=== PATIENT | male | born 1995 | race Caucasian/White ===

== ENCOUNTER 2019-08-04 19:48 | Emergency (ER) | payer MEDICARE, MEDICAID, SELFPAY ==
--- NOTE | 2019-08-04 19:51 | XR_ITS ---
WS: [id number] XR chest 2V* [id number] REASON FOR EXAM: cough FINDINGS: Gross cardiomegaly is seen. There is interstitial pulmonary edema bilaterally. The projections are underpenetrated due to the body habitus of the patient. No pneumonic consolidation. XR/XR chest 2V* [id number] IMPRESSION: Mild congestive heart failure Gross cardiomegaly.
[2019-08-04 20:24] VITALS: BP 158/88; PULSE 78; RESP 16; TEMP 37.3; O2SAT 96; BMI 120.0
--- NOTE | 2019-08-04 20:48 | W.ED.SOB ---
HPI - SOB/Dyspnea General: Chief Complaint: Shortness of Breath/Dyspnea Stated Complaint: sob Time Seen by Provider: 08/04/19 20:35 Source: patient and family Mode of arrival: wheelchair Limitations: no limitations History of Present Illness: HPI Narrative: Patient is a 23-year-old male who presents to ED today with complaints of an episode of chest pain and accompanying shortness of breath that occurred prior to arrival but has subsided upon arrival. Patient states symptoms started at rest. He describes the pain as substernal with no radiation. Reports a mild cough. Patient reports he is not short of breath sitting in the room. He has not noticed any fevers. Denies palpitations, hemoptysis, lightheadedness/dizziness, LE swelling. Patient reportedly has a history of cardiomegaly but he has never had any follow-up or work-up regarding this. Patient has a history of dwarfism causing very short round stature. MD elicited complaint: shortness of breath and chest pain Onset (ago): hour(s) Timing: now resolved Severity: mild Exacerbating factors: nothing Relieving factors: nothing Associated symptoms: Reports no associated symptoms and chest pain (subsided now); Deny abdominal pain, chest congestion, fever(s), hemoptysis, lightheadedness, nausea, orthopnea, palpitations, syncope or vomiting Treatment prior to arrival: none Review of Systems Const: Denies: fever, chills, body aches, change in appetite, change in weight or fatigue Eyes: Denies: change in vision, blurry vision or photophobia ENMT: Denies: throat pain, enlarged tonsils or painful swallowing Card: Reports: chest pain (subsided now); Denies: palpitations, irregular heart rhythm, edema, swelling of feet/ankles, lightheadedness, syncope, pre-syncope, shortness of breath when lying down or leg pain with exertion Resp: Reports: shortness of breath (subsided now) and non-productive cough; Denies: pain on inspiration, change in phlegm color, coughing up blood or chest congestion GI: Denies: abdominal pain, nausea or vomiting Musc: Denies: neck pain or back pain Skin/Breast: Denies: rash Neuro: Denies: headache, numbness in extremities, weakness in extremities or changes in sensation PFSH ED PFSH: Social History Smoking and tobacco status: current every day smoker Physical Exam Const: COMMON NORMALS: no apparent distress, oriented x3, no limitations and alert OTHER: 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 Patient's BMI is over 120. HENMT: COMMON NORMALS: normocephalic and head/scalp atraumatic HEAD & SCALP: normocephalic and atraumatic Resp: COMMON NORMALS: normal respiratory effort and clear to auscultation bilaterally AUSCULTATION: clear to auscultation bilaterally Cardio: COMMON NORMALS: regular rate and regular rhythm RATE: regular rate RHYTHM: regular rhythm Neuro: COMMON NORMALS: oriented x3 SENSORIUM/ORIENTATION: Yes alert Skin: COMMON NORMALS: no rashes or lesions noted GENERAL SKIN EXAM: no rashes or lesions noted Course Vital Signs: Vital signs: Vital Signs Temperature 99.0 F 08/04/19 22:54 Pulse Rate 82 08/04/19 22:54 Respiratory Rate 16 08/04/19 22:54 Blood Pressure 152/86 08/04/19 22:54 Pulse Oximetry 97 08/04/19 22:54 MDM - SOB/Dyspnea MDM Narrative: Medical decision making narrative: Patient comes in with complaint of one episode of shortness of breath and chest pain that have now resolved. Patient's labs including a troponin are normal. His CXR does show cardiomegaly but no other acute abnormalities. EKG is normal. Patient ultimately needs follow-up with his PCP. Given his extreme short stature and morbidly obese weight (BMI is over 120) he is at cardiac risk. Patient and family agree to follow-up with their PCP as soon as possible. Return to ED precautions given. Lab Data: Labs: Lab Results 08/04/19 08/04/19 08/04/19 Range/Units 21:15 21:15 21:26 WBC 10.4 H (4.0-10.0) 10^3/ uL RBC 5.08 (4.1-5.3) 10^6/u L Hgb 15.6 (11.7-16.6) g/dL Hct 47.6 (42.0-52.0) % MCV 93.7 (80-94) fL MCH 30.7 (28.0-34.0) pg MCHC 32.8 (30.0-36.0) g/dL RDW 12.8 (12.1-15.1) % Plt Count 330 (130-400) 10^3/c mm MPV 10.2 (7.4-10.4) fL Neut % (Auto) 67.9 % Lymph % (Auto) 20.3 % [place] % (Auto) 6.4 % Eos % (Auto) 4.3 % Baso % (Auto) 0.8 % Neut # (Auto) 7.1 (1.8-7.7) 10^3/u L Lymph # (Auto) 2.1 (0.8-4.8) 10^3/u L [place] # (Auto) 0.7 (0.2-0.9) 10^3/u L Eos # (Auto) 0.5 (0.0-0.8) 10^3/u L Baso # (Auto) 0.1 (0.0-0.1) 10^3/u L Nucleated RBC % (a uto) 0 % Nucleated RBCs # 0.0 /100WBC Sodium 138 (136-145) mmol/L Potassium 4.1 (3.5-5.1) mmol/L Chloride 101 (98-107) mmol/L Carbon Dioxide 23 (22-29) mmol/L Anion Gap 18.1 (5-19) BUN 6 (6-20) mg/dL Creatinine 0.4 L (0.7-1.2) mg/dL GFR Calculation 264.3 H (90-130) mL/min Glucose 104 (65-115) mg/dL Calculated Osmolal ity 282 L (285-295) mOsm/k g Calcium 9.9 (8.5-10.5) mg/dL Total Bilirubin 0.3 (0.15-1.2) mg/dL AST 32 (0-40) U/L ALT 55 H (0-41) U/L Alkaline Phosphata se 68 (40-130) IU/L Troponin T Gen 5 n g/L 7 (0-15) ng/mL Total Protein 7.6 (6.6-8.7) g/dL Albumin 4.5 (3.5-5.2) g/dL Globulin 3.1 (1.3-4.6) g/dL Imaging Data^: CXR: My impression: overall poor quality; cardiomegaly; no other acute abnormalities appreciated EKG Data^: EKG 1: EKG Interpretation Date: 08/04/19 EKG interpretation time: 20:40 Interpretation: Sinus rhythm Rate [address] elevation or depression noted Discharge Plan Discharge Patient Disposition: Home, Self-Care Clinical Impression: Chest pain Qualifiers: Chest pain type: unspecified Qualified Code(s): R07.9 - Chest pain, unspecified Condition: Stable Prescriptions: No Action No Known Home Medications RF: 0 Discharge Orders: Discharge Order (Routine); Ordered 08/04/19 Ordered By: Rolanda Fowler Activity Restrictions/Additional Instructions: As discussed you need to follow-up with your primary care doctor soon as possible for further evaluation. They may opt to perform outpatient testing for further evaluation of your heart. Return to the emergency department for worsening pain, worsening shortness of breath, fevers, or any other concerns you may have. Coding Level of Care Code ED Emergency Spill Response Technician for Chg Fwd Exam Detailed
[2019-08-04 21:13] VITALS: O2SAT 97
[2019-08-04 21:38] LABS: Basophils # 0.1 10^3/uL (0.0-0.1); Basophils % 0.8 %; Eosinophils # 0.5 10^3/uL (0.0-0.8); Eosinophils % 4.3 %; Hematocrit 47.6 % (42.0-52.0); Hemoglobin 15.6 g/dL (11.7-16.6); Lymphocytes # 2.1 10^3/uL (0.8-4.8); Lymphocytes % 20.3 %; Mean Corpuscular HGB Conc 32.8 g/dL (30.0-36.0); Mean Corpuscular Hemoglobin 30.7 pg (28.0-34.0); Mean Corpuscular Volume 93.7 fL (80-94); Mean Platelet Volume 10.2 fL (7.4-10.4); Monocytes # 0.7 10^3/uL (0.2-0.9); Monocytes % 6.4 %; Neutrophils # 7.1 10^3/uL (1.8-7.7); Neutrophils % 67.9 %; Nucleated Red Blood Cells % 0 %; Platelet Count 330 10^3/cmm (130-400); Red Blood Count 5.08 10^6/uL (4.1-5.3); Red Cell Distribution Width 12.8 % (12.1-15.1); White Blood Count 10.4 10^3/uL (4.0-10.0)
[2019-08-04 21:49] LABS: Alanine Aminotransferase 55 U/L (0-41); Albumin Level 4.5 g/dL (3.5-5.2); Alkaline Phosphatase 68 IU/L (40-130); Anion Gap 18.1 (5-19); Aspartate Amino Transferase 32 U/L (0-40); Blood Urea Nitrogen 6 mg/dL (6-20); Calcium 9.9 mg/dL (8.5-10.5); Carbon Dioxide 23 mmol/L (22-29); Chloride 101 mmol/L (98-107); Globulin 3.1 g/dL (1.3-4.6); Glomerular Filtration Rate 264.3 mL/min (90-130); Glucose 104 mg/dL (65-115); Osmolality Calculated 282 mOsm/kg (285-295); Potassium 4.1 mmol/L (3.5-5.1); Sodium 138 mmol/L (136-145); Total Bilirubin 0.3 mg/dL (0.15-1.2); Total Protein 7.6 g/dL (6.6-8.7)
[2019-08-04 22:27] LABS: Troponin T (5th) Once 7 ng/mL (0-15)
[2019-08-04 22:54] VITALS: BP 152/86; PULSE 82; RESP 16; TEMP 37.2; O2SAT 97
--- NOTE | 2019-08-05 00:19 | PC.NURSE ---
Assessment verified and signed off
== END 2019-08-04 23:00 | disposition home or self-care (01) ==
PROVIDERS: Emergency Provider Physician Assistant
DX: R07.9 Chest pain, unspecified (principal); E66.01 Morbid (severe) obesity due to excess calories; Z68.45 Body mass index [BMI] 70 or greater, adult; F17.200 Nicotine dependence, unspecified, uncomplicated
CPT/HCPCS: 12345; 36415; 71046; 80053; 84484; 85025; 99282; 99283

== ENCOUNTER 2023-10-12 17:22 | Emergency (ER) | payer MEDICARE, MEDICAID, SELFPAY ==
[2023-10-12 17:23] VITALS: BP 103/76; PULSE 112; RESP 20; TEMP 37.2; O2SAT 93
--- NOTE | 2023-10-12 17:31 | ECG_ITS ---
[facility] Test Date: 2023-10-12 Pat Name: Antony Bui Department: Room: Gender: Male Certified Orthotist/Pedorthist: : 1995 Requested By: Vinay Saenz Order Number: [id number] Sukumar MD: Jennifer Wilkerson M.D. Measurements Intervals [place] Rate: 114 P: 49 MS: 148 QRS: 67 QRSD: 98 T: 56 QT: 374 QTc: 517 Interpretive Statements SINUS TACHYCARDIA LOW QRS VOLTAGE IN PRECORDIAL LEADS [QRS DEFLECTION < 1.0 mV IN CHEST LEADS] POSSIBLE RIGHT VENTRICULAR CONDUCTION DELAY [RSR (QR) IN V1/V2] NONSPECIFIC T-WAVE ABNORMALITY ABNORMAL RHYTHM ECG Compared to ECG 11/17/2014 16:39:19 T-wave abnormality now present Sinus rhythm no longer present Electronically Signed On 10-13-2023 8:34:49 CDT by Jennifer Wilkerson M.D. [email or web address]
--- NOTE | 2023-10-12 17:31 | XRR_ITS ---
PROCEDURE INFORMATION: Exam: XR Chest Exam date and time: 10/12/2023 5:41 PM Age: 27 years old Clinical indication: Angina pectoris; Patient HX: Chest pain TECHNIQUE: Imaging protocol: Radiologic exam of the chest. Views: 1 view. COMPARISON: CR XR chest 2V* [id number] 08/04/2019 8:10 PM FINDINGS: Lungs: No focal lung consolidation. Question mild bibasilar atelectasis/infiltrates. Pleural spaces: No pleural effusion. No pneumothorax. Heart/Mediastinum: Mild cardiomegaly. Bones/joints: No acute bony abnormality. XR/XR chest 1V portable [id number] IMPRESSION: No focal lung consolidation. Question mild bibasilar atelectasis/infiltrates.
--- NOTE | 2023-10-12 17:41 | ED_ITS ---
HPI - Chest Pain 2 General: Chief Complaint: Chest Pain Stated Complaint: CHEST PAIN Time Seen by Provider: 10/12/23 17:25 History of Present Illness: 27-year-old male patient comes in today with complaints of chest discomfort and tachycardia. Patient reports a history of enlarged heart. Patient does have dwarfism. Patient is morbidly obese. Patient takes no routine medications. Patient believes he may be diabetic. Patient does endorse some cellulitis to his bilateral lower extremities. Patient uses tobacco and occasional THC. Patient denies any alcohol or methamphetamines. Patient can ambulate but just barely. Patient does also state he has some depression and anxiety. Patient does feel safe at home. Patient is very unkempt. Review of Systems 2 General: Reports: 10 or more systems reviewed and unremarkable except in HPI and below PFSH ED 2 PFSH: Social History Smoking and tobacco/nicotine status: current every day tobacco/nicotine user Physical Exam 2 Const: COMMON NORMALS: alert HENMT: COMMON NORMALS: normocephalic HEAD & SCALP: normocephalic Neck/C-Spine: COMMON NORMALS: full ROM Resp: COMMON NORMALS: normal respiratory effort and clear to auscultation bilaterally AUSCULTATION: clear to auscultation bilaterally Cardio: COMMON NORMALS: regular rate and regular rhythm RATE: regular rate RHYTHM: regular rhythm GI: COMMON NORMALS: Soft to palpation and non-tender PALPATION: Yes Soft to palpation Back/Pelvis: COMMON NORMALS: thoracic and lumbar spine normal to inspection Extremity: NARRATIVE EXTREMITY EXAM: Flexural redness. Patient does have a old abscess to the left inner thigh that is hard and sclerosed that patient is describing as cellulitis. Neuro: SENSORIUM/ORIENTATION: Yes alert Course 2 Vital Signs: Vital signs: Vital Signs Temperature 98.9 F 10/12/23 17:23 Pulse Rate 109 H 10/12/23 20:03 Respiratory Rate 23 H 10/12/23 20:03 Blood Pressure 155/103 10/12/23 20:03 Pulse Oximetry 91 10/12/23 20:03 Oxygen Delivery Me thod Room Air 10/12/23 19:24 MDM - Chest Pain Medical Decision Making 27-year-old male patient comes in today with concerns of rapid heart rate and chest discomfort. Patient appears nontoxic. Patient does endorse some redness and erythema to the lower extremities but on review we note some intertrigo and an old abscess that is healed. Lungs are clear to auscultation. Heart rates tachycardic in the 112, blood pressure is 103/76. Patient is afebrile. Pulse oxygen is 90 to 93% on room air. Differential diagnosis includes but not limited to congestive heart failure, ACS, pneumonia, sepsis, cellulitis, DKA, hyperosmolar nonketotic acidosis. CBC notes a white count of 14,000. CMP is unremarkable. Chest x-ray shows mild bibasilar infiltrates. No obvious consolidated lung areas. Lactic was 2.1. Patient was given 1 L of IV fluids and reported significant improvement of symptoms. Weight patient most likely had some mild dehydration. Discussed patient's need for follow-up and care of intertrigo's areas. Lab Data 10/12/23 18:30 10/12/23 18:30 Radiology Impressions Chest X-Ray 10/12/23 17:31 IMPRESSION: No focal lung consolidation. Question mild bibasilar atelectasis/infiltrates. Laboratory Results WBC 14.08 10^3/uL (3.29-11.43) H 10/12/23 18:30 RBC 5.40 10^6/uL (3.85-5.65) 10/12/23 18:30 Hgb 17.20 g/dL (11.27-16.99) H 10/12/23 18:30 Hct 49.8 % (37-53) 10/12/23 18:30 MCV 92.2 fl (82-101) 10/12/23 18: MCH 31.9 pg (27-33) 10/12/23 18: MCHC 34.5 g/dL (30-55) 10/12/23 18:30 RDW 13.3 % (12.1-15.1) 10/12/23 18:30 Plt Count 375 10^3/cmm (157-399) 10/12/23 18: MPV 9.7 fL (7.4-10.4) 10/12/23 18:30 Neut % (Auto) 76.3 % 10/12/23 18:30 Lymph % (Auto) 14.8 % 10/12/23 18:30 [place] % (Auto) 5.3 % 10/12/23 18:30 Eos % (Auto) 2.4 % 10/12/23 18:30 Baso % (Auto) 0.7 % 10/12/23 18:30 Neut # (Auto) 10.74 10^3/uL (1.8-7.7) H 10/12/23 18:30 Lymph # (Auto) 2.1 10^3/uL (0.8-4.8) 10/12/23 18:30 [place] # (Auto) 0.8 10^3/uL (0.2-0.9) 10/12/23 18:30 Eos # (Auto) 0.3 10^3/uL (0.0-0.8) 10/12/23 18:30 Baso # (Auto) 0.1 10^3/uL (0.0-0.1) 10/12/23 18:30 Nucleated RBC % (auto) 0 % 10/12/23 18:30 Nucleated RBCs # 0.0 /100WBC 10/12/23 18:30 Sodium 137 mmol/L (136-145) 10/12/23 18:30 Potassium 4.1 mmol/L (3.5-5.1) 10/12/23 18:30 Chloride 101 mmol/L (98-107) 10/12/23 18:30 Carbon Dioxide 22 mmol/L (22-29) 10/12/23 18:30 Anion Gap 18.1 (5-19) 10/12/23 18:30 BUN 5 mg/dL (6-20) L 10/12/23 18:30 Creatinine 0.5 mg/dL (0.7-1.2) L 10/12/23 18:30 GFR Calculation 198.0 mL/min (90-130) H 10/12/23 18:30 Glucose 107 mg/dL (65-115) 10/12/23 18:30 Calculated Osmolality 282 mOsm/kg (285-295) L 10/12/23 18:30 Lactic Acid 2.1 mmol/L (0.5-2.2) 10/12/23 18:30 Calcium 9.3 mg/dL (8.5-10.5) 10/12/23 18:30 Total Bilirubin 0.4 mg/dL (0.15-1.2) 10/12/23 18:30 AST 17 U/L (0-40) 10/12/23 18:30 ALT 35 U/L (0-41) 10/12/23 18:30 Alkaline Phosphatase 96 U/L (40-130) 10/12/23 18:30 Troponin T Baseline 17 ng/L (0-15) H 10/12/23 18:30 Troponin T 120 Minute 19.44 ng/L (0-15) H 10/12/23 19:30 Delta Troponin T 2.44 ABS# (0-10) 10/12/23 19:30 NT-Pro-B Natriuret Pep 130 pg/mL (0-125) H 10/12/23 18:30 Total Protein 7.4 g/dL (6.6-8.7) 10/12/23 18:30 Albumin 4.3 g/dL (3.5-5.2) 10/12/23 18:30 Globulin 3.1 g/dL (1.3-4.6) 10/12/23 18:30 Lipase 21 U/L (13-60) 10/12/23 18:30 All radiology interpretation(s) finalized by discharge Discharge Plan Discharge Patient Disposition: Home Clinical Impression: Acute dehydration, Chest pain, Intertrigo Condition: Stable Prescriptions: No Action No Known Home Medications Rx Instructions: NO KNOWN Discharge Orders: Discharge ED (Routine); Ordered 10/12/23 Ordered By: Vinay Lafleur Discharge Diet: Usual diet Discharge Activity: Increase activity as tolerated Patient Instructions: Dehydration (ED) Activity Restrictions/Additional Instructions: Home and rest. Make sure to drink plenty of water and fluids. Follow-up with primary care for further instructions. Return to ED for new concerns. Coding Level of Care Code ED Gymnastic Teacher for Lynn Kline
[2023-10-12 17:50] VITALS: PULSE 112; RESP 23; O2SAT 90
[2023-10-12] MEDS: aspirin 81 mg Chew Tablet 162 MG PO (18:16)
--- NOTE | 2023-10-12 18:17 | PC.NURSE ---
Delay in obtaining labs occurred due to difficulty initiating IV access; Miquel notified.
[2023-10-12] MEDS: sodium chloride 0.9% 1,000 ML 999 ML IV (18:34)
[2023-10-12 18:46] LABS: Basophils # 0.1 10^3/uL (0.0-0.1); Basophils % 0.7 %; Eosinophils # 0.3 10^3/uL (0.0-0.8); Eosinophils % 2.4 %; Hematocrit 49.8 % (37-53); Lymphocytes # 2.1 10^3/uL (0.8-4.8); Lymphocytes % 14.8 %; Mean Corpuscular HGB Conc 34.5 g/dL (30-55); Mean Corpuscular Hemoglobin 31.9 pg (27-33); Mean Corpuscular Volume 92.2 fl (82-101); Mean Platelet Volume 9.7 fL (7.4-10.4); Monocytes # 0.8 10^3/uL (0.2-0.9); Monocytes % 5.3 %; Neutrophils # 10.74 10^3/uL (1.8-7.7); Neutrophils % 76.3 %; Nucleated Red Blood Cells % 0 %; Platelet Count 375 10^3/cmm (157-399); Red Cell Distribution Width 13.3 % (12.1-15.1); White Blood Count 14.08 10^3/uL (3.29-11.43)
[2023-10-12 19:03] LABS: Lactic Sepsis W/Reflex 2.1 mmol/L (0.5-2.2)
[2023-10-12 19:04] LABS: Troponin(5th) Baseline 17 ng/L (0-15)
[2023-10-12 19:15] LABS: Alanine Aminotransferase 35 U/L (0-41); Albumin Level 4.3 g/dL (3.5-5.2); Alkaline Phosphatase 96 U/L (40-130); Anion Gap 18.1 (5-19); Aspartate Amino Transferase 17 U/L (0-40); Blood Urea Nitrogen 5 mg/dL (6-20); Calcium 9.3 mg/dL (8.5-10.5); Carbon Dioxide 22 mmol/L (22-29); Chloride 101 mmol/L (98-107); Creatinine Clr Calc Pharmacy 493.9107; Globulin 3.1 g/dL (1.3-4.6); Glucose 107 mg/dL (65-115); Lipase 21 U/L (13-60); NT Pro B Type Natriuretic Pept 130 pg/mL (0-125); Osmolality Calculated 282 mOsm/kg (285-295); Potassium 4.1 mmol/L (3.5-5.1); Sodium 137 mmol/L (136-145); Total Bilirubin 0.4 mg/dL (0.15-1.2); Total Protein 7.4 g/dL (6.6-8.7)
[2023-10-12 19:24] VITALS: PULSE 102; RESP 26; O2SAT 90
[2023-10-12 20:03] VITALS: BP 155/103; PULSE 109; RESP 23; O2SAT 91
[2023-10-12 20:07] LABS: Troponin 5 2HR 19.44 ng/L (0-15); Troponin 5 2HR Delta 2.44 ABS# (0-10)
[2023-10-12 20:25] LABS: Reflex Lactate Order REFLEX LACTIC ORDERD
== END 2023-10-12 20:59 | disposition home or self-care (01) ==
PROVIDERS: Emergency Provider Nurse Practitioner Family
DX: R07.9 Chest pain, unspecified (principal); L30.4 Erythema intertrigo; E86.0 Dehydration; Z72.0 Tobacco use
CPT/HCPCS: 71045; 80053; 83605; 83690; 83880; 84484; 85025; 93005; 99285; J7030